=== PATIENT | male | born 1970 | race Caucasian/White ===

== ENCOUNTER → 2017-06-22 | Outpatient (CLI) | payer SELFPAY ==
--- NOTE | 2017-06-25 09:24 | RAD ---
EXAM DESCRIPTION: Foot,Right 3 Views Right foot pain CLINICAL HISTORY: 47 years, Male, HEEL PAIN, POSSIBLE BONE SPURS COMPARISON: None. FINDINGS: No fracture or dislocation. Moderate size plantar heel spur. IMPRESSION: No fracture or dislocation. Moderate size plantar heel spur. Electronically signed by: Sascha Tellez MD 06/25/2017 9:22 AM CDT
--- NOTE | 2017-06-25 09:26 | RAD ---
EXAM DESCRIPTION: Foot,Left 3 Views left foot CLINICAL HISTORY: 47 years, Male, HEEL PAIN, POSSIBLE BONE SPURS COMPARISON: None. FINDINGS: Three views do not demonstrate fracture or dislocation. Plantar heel spur. IMPRESSION: No fracture or dislocation. Plantar heel spur, slightly smaller than the right side Electronically signed by: Sascha Tellez MD 06/25/2017 9:25 AM CDT
== END | disposition home or self-care (01) ==
LOC: YCFC.O 15:39
PROVIDERS: ATTEND Nurse Practitioner Family
DX: M79.671 Pain in right foot (principal); M79.672 Pain in left foot

== ENCOUNTER → 2017-06-23 | Outpatient (CLI) | payer BC | END | disposition home or self-care (01) | LOC: YCFC.O 06-22 15:10 | PROVIDERS: ATTEND Nurse Practitioner Family | DX: R53.83 Other fatigue (principal); E66.9 Obesity, unspecified; Z13.220 Encounter for screening for lipoid disorders; N52.9 Male erectile dysfunction, unspecified; R73.09 Other abnormal glucose; I10 Essential (primary) hypertension; Z68.36 Body mass index [BMI] 36.0-36.9, adult ==

== ENCOUNTER 2019-08-31 18:21 | Emergency (ER) | payer SELFPAY ==
[2019-08-31 18:55] VITALS: TEMP 99.9
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
[2019-08-31] MEDS: SULFA/TRIMETH 800/160 (DS) TAB 1 EA TAB PO ONE (19:11)
[2019-08-31] MEDS: HYDROcodone 7.5MG/APAP 325MG 1 EA TAB PO ONE (19:11)
[2019-08-31 19:47] VITALS: BP 141/97; O2SAT 100
== END 2019-08-31 19:45 | disposition home or self-care (01) ==
LOC: ER 18:21
DX: L03.115 Cellulitis of right lower limb (principal); Z87.891 Personal history of nicotine dependence